=== PATIENT | male | born 1990 | race Caucasian/White ===

== ENCOUNTER → 2018-07-10 | Outpatient (CLI) | payer BC | END | disposition home or self-care (01) | LOC: LAB 09:08 | PROVIDERS: ATTEND Family Medicine | DX: K29.70 Gastritis, unspecified, without bleeding (principal) | CPT/HCPCS: 86677 ==

== ENCOUNTER 2019-06-19 | Emergency (ER) | payer BC, OTHER ==
[~2019-06-19] VITALS: Ht 188 cm; Wt 90.7 kg
[2019-06-19 00:29] VITALS: BP 145/94
== END 2019-06-19 02:28 | disposition home or self-care (01) ==
LOC: ER 00:03
DX: S51.831A Puncture wound without foreign body of right forearm, initial encounter (principal); S93.402A Sprain of unspecified ligament of left ankle, initial encounter; W26.8XXA Contact with other sharp object(s), not elsewhere classified, initial encounter; Y93.89 Activity, other specified; Y99.0 Civilian activity done for income or pay; Y92.89 Other specified places as the place of occurrence of the external cause
CPT/HCPCS: 73090; 73610; 73660

== ENCOUNTER 2021-04-20 11:09 | Day surgery (SDC) | payer BC ==
[2021-04-17 09:01] LABS: Basophils # (auto) 0 10 ^3/uL (0-0.2); Basophils % (auto) 0.3 % (0.0-2.0); Eosinophils # (auto) 0.2 10 ^3/uL (0-0.8); Eosinophils % (auto) 3.3 % (0.0-7.0); Hematocrit 45.2 % (41.0-53.0); Hemoglobin 15.4 g/dL (13.5-17.5); Lymphocytes # (auto) 2.1 10 ^3/uL (0.4-5.4); Lymphocytes % (auto) 31.9 % (10.0-50.0); Mean Corpuscular Hemoglobin 28.9 pg (28.0-32.0); Monocytes # (auto) 0.6 10 ^3/uL (0-1.3); Monocytes % (auto) 9.6 % (0.0-12.0); Neutrophils # (auto) 3.7 10 ^3/uL (1.6-8.6); Neutrophils % (auto) 54.9 % (37.0-80.0); Platelet Count (auto) 256 10^3/uL (140-450); Red Blood Cells 5.32 10^6/uL (4.5-5.90); Red Cell Distribution Width 13.4 % (11.8-14.3); White Blood Cell 6.7 10^3/uL (4.4-10.8)
[2021-04-17 09:17] LABS: INR 1.06 (0.9-1.15); Partial Thromboplastin Time 24.5 sec (23.0-31.2)
[2021-04-17 09:48] LABS: Calcium 8.8 mg/dL (8.5-10.1); Potassium 4.1 mmol/L (3.5-5.1)
[2021-04-17 09:52] LABS: BUN/Creatinine Ratio 20.7; Bilirubin, Total 0.4 mg/dL (0.2-1.0); Total Protein 7.9 g/dL (6.4-8.2)
[~2021-04-20] VITALS: Ht 190.5 cm; Wt 95.3 kg
[~2021-04-20 11:09] MED LIST: PANT40TA2 PO; [UNRECOGNIZED DRUG - CODE] PO; [UNRECOGNIZED DRUG - CODE] PO
[2021-04-20] MEDS ORDERED: LIDOCAINE VISCOUS 2% 15ML UD ONE (11:27)
[2021-04-20] MEDS: diphenhdrAMINE HCL 50 MG/1 ML VL ONE ×2 (12:21→12:24)
[2021-04-20] MEDS: fentaNYL CITRATE 100 MCG/2 ML VL ONE ×2 (12:21→12:24)
[2021-04-20] MEDS: MIDAZOLAM HCL 5 MG/ML-1ML VIAL ONE ×3 (12:21→12:27)
[2021-04-20 13:00] VITALS: BP 124/68
== END 2021-04-20 13:10 | disposition home or self-care (01) ==
LOC: GI 11:09
PROVIDERS: ATTEND Internal Medicine Gastroenterology
DX: R10.13 Epigastric pain (principal); K31.89 Other diseases of stomach and duodenum; K44.9 Diaphragmatic hernia without obstruction or gangrene; K21.9 Gastro-esophageal reflux disease without esophagitis; K22.10 Ulcer of esophagus without bleeding; K29.70 Gastritis, unspecified, without bleeding; Z79.899 Other long term (current) drug therapy; Z20.822 Contact with and (suspected) exposure to COVID-19; Z98.890 Other specified postprocedural states
CPT/HCPCS: 36415; 43235; 80053; 85025; 85610; 85730; 88305; 88312; 88313; 88342; J1200; J2250; J3010; J7030; U0003; 43239

== ENCOUNTER → 2022-10-31 | Outpatient (CLI) | payer BC ==
[2022-10-31 09:02] LABS: Basophils # (auto) 0.1 10 ^3/uL (0-0.2); Eosinophils # (auto) 0.3 10 ^3/uL (0-0.8); Eosinophils % (auto) 4.2 % (0.0-7.0); Hematocrit 45.8 % (41.0-53.0); Hemoglobin 15.3 g/dL (13.5-17.5); Lymphocytes # (auto) 2.3 10 ^3/uL (0.4-5.4); Lymphocytes % (auto) 36.5 % (10.0-50.0); Mean Corpuscular Hemoglobin 28.3 pg (28.0-32.0); Mean Corpuscular Hgb Conc. 33.3 g/dL (32.0-36.0); Mean Corpuscular Volume 84.9 fL (80.0-100.0); Monocytes # (auto) 0.6 10 ^3/uL (0-1.3); Monocytes % (auto) 9.5 % (0.0-12.0); Neutrophils # (auto) 3.1 10 ^3/uL (1.6-8.6); Neutrophils % (auto) 48.8 % (37.0-80.0); Red Blood Cells 5.39 10^6/uL (4.5-5.90); White Blood Cell 6.3 10^3/uL (4.4-10.8)
[2022-10-31 09:30] LABS: Albumin 3.9 g/dL (3.4-5.0); Calcium 8.9 mg/dL (8.5-10.1); Potassium 4.1 mmol/L (3.5-5.1)
[2022-10-31 09:33] LABS: BUN/Creatinine Ratio 16.2; Bilirubin, Total 0.3 mg/dL (0.2-1.0); Total Protein 7.3 g/dL (6.4-8.2)
== END | disposition home or self-care (01) ==
LOC: LAB 08:49
PROVIDERS: ATTEND Student in an Organized Health Care Education/Training Program
DX: Z00.00 Encounter for general adult medical examination without abnormal findings (principal)
CPT/HCPCS: 36415; 80053; 85025

== ENCOUNTER 2023-01-03 19:23 | Emergency (ER) | payer BC ==
[~2023-01-03] VITALS: Ht 188 cm; Wt 98.9 kg
[2023-01-03] MEDS ORDERED: KETOROLAC TROMETH 60MG/2ML VIAL IM ONE (19:45)
[2023-01-03 20:00] LABS: Basophils # (auto) 0 10 ^3/uL (0-0.2); Basophils % (auto) 0.4 % (0.0-2.0); Eosinophils # (auto) 0.3 10 ^3/uL (0-0.8); Eosinophils % (auto) 5.6 % (0.0-7.0); Hematocrit 45.2 % (41.0-53.0); Hemoglobin 15.7 g/dL (13.5-17.5); Lymphocytes % (auto) 37.4 % (10.0-50.0); Mean Corpuscular Hemoglobin 29.5 pg (28.0-32.0); Mean Corpuscular Hgb Conc. 34.8 g/dL (32.0-36.0); Mean Corpuscular Volume 84.7 fL (80.0-100.0); Monocytes # (auto) 0.6 10 ^3/uL (0-1.3); Monocytes % (auto) 11.5 % (0.0-12.0); Neutrophils # (auto) 2.4 10 ^3/uL (1.6-8.6); Neutrophils % (auto) 45.1 % (37.0-80.0); Nucleated Red Blood Cells % 0.1 %; Red Blood Cells 5.33 10^6/uL (4.5-5.90); Red Cell Distribution Width 13.3 % (11.8-14.3); White Blood Cell 5.3 10^3/uL (4.4-10.8)
[2023-01-03 20:15] LABS: Albumin 3.8 g/dL (3.4-5.0); Calcium 8.8 mg/dL (8.5-10.1); Potassium 4.1 mmol/L (3.5-5.1)
[2023-01-03 20:17] LABS: BUN/Creatinine Ratio 11.6
[2023-01-03 20:19] LABS: Bilirubin, Total 0.6 mg/dL (0.2-1.0); Total Protein 7.1 g/dL (6.4-8.2)
[2023-01-03 22:31] VITALS: BP 126/70
== END 2023-01-03 22:33 | disposition home or self-care (01) ==
LOC: EEVIPCON 19:23 → ER 19:23
DX: R07.89 Other chest pain (principal); Z79.899 Other long term (current) drug therapy
CPT/HCPCS: 36415; 71046; 80053; 83880; 84484; 85025; 85379; 96372; 99285; J1885

== ENCOUNTER 2024-03-26 04:12 | Emergency (ER) | payer BC ==
[~2024-03-26] VITALS: Ht 188 cm; Wt 93.2 kg
[2024-03-26] MEDS ORDERED: DOCU-94 PO (05:14)
[2024-03-26] MEDS ORDERED: HYDR-4902 PO (05:14)
[2024-03-26] MEDS: KETOROLAC TROMETH 60MG/2ML VIAL IM ONE (06:44)
[2024-03-26] MEDS: DexAMETHasone SOD PHOS 10MG/1ML VIAL INJ IM ONE (06:44)
[2024-03-26] MEDS: HYDROcodone-ACET 5/325MG TAB PO ONE (06:45)
[2024-03-26 07:26] VITALS: BP 129/74; PULSE 79; RESP 18; TEMP 98; O2SAT 98
[2024-03-26] MEDS ORDERED: LACT10SO3 PO (10:17)
[2024-03-26] MEDS ORDERED: TAMS-35 PO (10:17)
== END 2024-03-26 07:36 | disposition home or self-care (01) ==
LOC: ER 04:12
DX: S29.011A Strain of muscle and tendon of front wall of thorax, initial encounter (principal); R07.81 Pleurodynia; Z79.899 Other long term (current) drug therapy; X58.XXXA Exposure to other specified factors, initial encounter; Y93.89 Activity, other specified; Y92.89 Other specified places as the place of occurrence of the external cause; Y99.8 Other external cause status
CPT/HCPCS: 96372; 99284; J1100; J1885

== ENCOUNTER 2024-03-26 07:40 | Emergency (ER) | payer BC ==
[~2024-03-26] VITALS: Ht 188 cm; Wt 94.9 kg
[~2024-03-26 07:40] MED LIST changes: +DOCU-94 PO; +HYDR-4902 PO
[2024-03-26 08:02] LABS: Urine Bacteria None Seen /hpf (None Seen)
[2024-03-26 08:11] LABS: Basophils # (auto) 0 10 ^3/uL (0-0.2); Basophils % (auto) 0.5 % (0.0-2.0); Eosinophils # (auto) 0.2 10 ^3/uL (0-0.8); Eosinophils % (auto) 2.2 % (0.0-7.0); Hematocrit 45.5 % (41.0-53.0); Hemoglobin 15.1 g/dL (13.5-17.5); Lymphocytes # (auto) 1.3 10 ^3/uL (0.4-5.4); Lymphocytes % (auto) 16.4 % (10.0-50.0); Mean Corpuscular Hemoglobin 27.8 pg (28.0-32.0); Mean Corpuscular Hgb Conc. 33.1 g/dL (32.0-36.0); Mean Corpuscular Volume 83.9 fL (80.0-100.0); Monocytes # (auto) 0.6 10 ^3/uL (0-1.3); Monocytes % (auto) 7.6 % (0.0-12.0); Neutrophils # (auto) 5.9 10 ^3/uL (1.6-8.6); Neutrophils % (auto) 73.3 % (37.0-80.0); Red Blood Cells 5.43 10^6/uL (4.5-5.90); White Blood Cell 8.1 10^3/uL (4.4-10.8)
[2024-03-26 08:21] VITALS: BP 122/71; PULSE 78; RESP 16; TEMP 98.1; O2SAT 98
[2024-03-26 08:25] LABS: Alanine Aminotransferase 29 U/L (7-40); Albumin 4.6 g/dL (3.2-4.8); Alkaline Phosphatase 43 U/L (46-116); Anion Gap 8 (5-15); Aspartate Aminotransferase 16 U/L (13-40); BUN/Creatinine Ratio 11.1 (10.0-20.0); Blood Urea Nitrogen 12 mg/dL (9-23); Calcium 9.8 mg/dL (8.5-10.1); Carbon Dioxide 25 mmol/L (20-30); Chloride 107 mmol/L (98-107); Glucose 101 mg/dL (74-106); Potassium 4.2 mmol/L (3.5-5.1); Sodium 140 mmol/L (136-145)
[2024-03-26 08:26] LABS: Bilirubin, Total 0.7 mg/dL (0.2-1.0); Total Protein 7.5 g/dL (5.7-8.2)
[2024-03-26 08:28] LABS: Urine Blood Negative /uL (Negative); Urine Clarity Clear (Clear); Urine Color Yellow (Yellow); Urine Mucus FEW (None Seen); Urine Protein, UAD TRACE (Negative); Urine Specific Gravity 1.029 (1.001-1.035); Urine Urobilinogen Normal (Negative); Urine WBC 3 /hpf (0 - 3)
[2024-03-26 08:51] LABS: Lipase 61 U/L (12-53)
[2024-03-26] MEDS ORDERED: TAMS-35 PO (10:17)
[2024-03-26] MEDS ORDERED: LACT10SO3 PO (10:17)
== END 2024-03-26 10:26 | disposition home or self-care (01) ==
LOC: ER 07:40
DX: N20.0 Calculus of kidney (principal); K59.00 Constipation, unspecified; K76.0 Fatty (change of) liver, not elsewhere classified; I10 Essential (primary) hypertension; Z79.899 Other long term (current) drug therapy
CPT/HCPCS: 36415; 74176; 76705; 80053; 81001; 83690; 85025

== ENCOUNTER → 2024-10-08 | Outpatient (CLI) | payer BC ==
[~2024-10-08] MED LIST changes: +ALBUTEROL SULF 2.5 MG/0.5ML(0.5%) NEB SOLN ONE; +LACT10SO3 PO; +TAMS-35 PO
--- NOTE | 2024-10-13 21:57 | DVHNC2 ---
Procedure - October 08, 2024 Pulmonary function test interpretation 1. No obstructive or restrictive ventilatory defect. 2. No significant bronchodilator response. FEV1 improved by 110 mL. 3. Total lung capacity is within normal limits, 91% of predicted (7.27 L). 4. Diffusion capacity is within normal limits, 115% of predicted. PLACIDO MCKEON MD Oct 13, 2024 21:57
== END | disposition home or self-care (01) ==
LOC: RT 08:36
PROVIDERS: ATTEND Internal Medicine Pulmonary Disease
DX: R06.09 Other forms of dyspnea (principal)
CPT/HCPCS: 94060; 94727; 94729